=== PATIENT | male | born 1985 | race African-American/Black ===

== ENCOUNTER 2021-03-10 15:08 | Emergency (ER) | payer MEDICAID ==
[~2021-03-10] VITALS: Ht 182.9 cm; Wt 82.0 kg
[2021-03-10] MEDS ORDERED: LIDOCAINE HCL/PF 1% 10 MG/ML 5ML VIAL INFIL ONE (15:30)
[2021-03-10] MEDS ORDERED: TETANUS, DIPHTHERIA, PERTUSSIS VAC/PF 0.5ML (>10YR OLD) IM ONE (15:30)
[2021-03-10] MEDS ORDERED: ACET-2708 MT (16:17)
[2021-03-10] MEDS ORDERED: BO1 TP (16:17)
[2021-03-10 16:50] VITALS: BP 126/73
== END 2021-03-10 16:51 | disposition home or self-care (01) ==
LOC: ER 15:08
DX: S51.812A Laceration without foreign body of left forearm, initial encounter (principal); W26.8XXA Contact with other sharp object(s), not elsewhere classified, initial encounter; Y93.89 Activity, other specified; Y92.89 Other specified places as the place of occurrence of the external cause; Y99.8 Other external cause status; J45.909 Unspecified asthma, uncomplicated; Z79.899 Other long term (current) drug therapy
CPT/HCPCS: 12002; 90471; 90715; 99283; J3490